=== PATIENT | female | born 1960 | race Caucasian/White ===

== ENCOUNTER 2017-08-15 08:30 | Inpatient (IN) | payer OTHER ==
[~2017-08-15] VITALS: Ht 172.7 cm; Wt 90.2 kg
[~2017-08-15 08:30] MED LIST: ADVAIR 250-501 EACH; ADVAIR 250-501 EACH INH; ALBUTEROL SULF8.5 GM IH; ALBUTEROL2.5 MG/3 M IH; ALLERGY RELIEF25 MG PO; AMITRIPTYLINE H50 MG PO; AMITRIPTYLINE H75 MG PO; AMITRIPTYLINE150 MG PO; AMOXICILLIN500 MG PO; ASPIRIN EC325 MG PO; AZITHROMYCIN250 MG PO; BACTRIM DS TAB1 EACH PO; CARBAMAZEPINE100 MG PO; CARBATROL100 MG PO; CEPHALEXIN500 MG PO; CETIRIZINE HCL10 MG PO; CHANTIX1 MG PO; CIPROFLOXACIN500 MG PO; CYCLOBENZAPRINE10 MG PO; DAILY VALUE1 EACH PO; DALIRESP500 MCG PO; DIAZEPAM10 MG PO; DIFLUCAN100 MG PO; FEMARA2.5 MG NG; FEMARA2.5 MG PO; FLEXERIL10 MG PO; FLUCONAZOLE150 MG PO; FLUTICASONE PRO16 GM NS; GEMFIBROZIL600 MG PO; HUMALOG100 UNIT/1 SUB-Q; HUMALOG100 UNIT/2 SUB-Q; HYDROCODON-ACE1 EA12 PO; HYDROCODON-ACE1 EAC8 PO; IPRAT-ALBUT 0.5-3 ML INH; KEFLEX500 MG PO; LANTUS100 UNITS/ SUB-Q; LEVAQUIN500 MG PO; LISINOPRIL10 MG PO; LISINOPRIL5 MG PO; MECLIZINE HCL12.5 MG PO; METOPROLOL SUCC25 MG PO; MIRALAX17 GM PO; NEURONTIN800 MG PO; NICORETTE2 MG MM; NORCO 5-325 TA1 EACH PO; NYSTATIN100000 UN1 PO; ONDANSETRON ODT4 MG PO; PERCOCET 7.5-31 EACH PO; PREDNISONE10 M1 PO; PREDNISONE10 MG PO; PREDNISONE20 MG; PREDNISONE20 MG PO; PREDNISONE5 MG PO; PRILOSEC OTC20 MG PO; PRILOSEC20 MG PO; SALT TABLETS; SENEXON-S TABL1 EACH PO; SPIRIVA18 MCG INH; SUMATRIPTAN SUC25 MG PO; TEGRETOL200 MG PO; TIMOPTIC 0.5%1 EACH OU; TOPROL XL25 MG PO; VALIUM5 MG PO; VITAMIN D-32000 UNI1 PO; VITAMIN D5000 UNIT PO; ZANTAC150 MG PO; ZESTRIL2.5 MG PO; ZITHROMAX500 MG PO; ZOFRAN8 MG PO
[2017-08-15] MEDS ORDERED: METOPROLOL TART25 MG PO (16:10)
[2017-08-15] MEDS ORDERED: HYDROCODON-ACE1 EAC8 PO (16:14)
[2017-08-15] MEDS ORDERED: ADVAIR 250-501 EACH INH (16:50)
[2017-08-15] MEDS ORDERED: IMITREX100 MG PO (18:35)
--- NOTE | 2017-08-16 10:01 | CONS ---
[facility] [place] [facility] [address], [place] [address] Signed DATE OF CONSULTATION: 08/15/2017 CHIEF COMPLAINT: Right lower quadrant abdominal pain. HISTORY OF PRESENT ILLNESS: Sophia is a 56-year-old female with significant medical history as listed below. She reminded me I removed her gallbladder back in 2014. She said before that she has had a couple of colonoscopies and to her knowledge they were fine. She presents to the emergency room today with 2 days of right mid quadrant and right lower quadrant abdominal pain and diarrhea. Her vital signs were stable. Her white count was borderline at 11, and the lactic acid borderline around 2.3. Consequently, she underwent a CT scan of the abdomen and pelvis. She does have a tiny 4.5 mm new lesion in the right lower lobe of her lung, but more importantly she has a large mass in the bnfwwgsf-fz-dxj right colon. This was obviously very concerning for colon cancer. Because of her advanced medical issues and her current situation, I was asked to admit her as a general surgeon general practitioner. In the meantime, we have also had our internal medicine service see her as well. She is in the process now of having IV placed and so forth. 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 PAST SURGICAL HISTORY: Includes a hysterectomy, bilateral wrist surgery, elbow surgery, shoulder surgery, bilateral cataract surgery, bowel resection, bladder suspension, laparoscopic cholecystectomy [place] [address] Grant. Bilateral hand surgery, left total knee replacement with Dr. Weeks. Bilateral mastectomy [place] [address] Whitman. At least 2 colonoscopies prior to [address] Whitman, left knee arthroscopy and drainage of a right eye. SOCIAL HISTORY: She has been smoking a pack of cigarettes a day since the age of 13. She does not drink. She is and lives alone in an apartment here in [place], [place]. She is eligible to drive, but chooses not to drive given all her medical issues. She has one son, Ariel Ortega at [phone], who lives in [place]. She prefers [facility]. PRIMARY CARE PROVIDER: CÉSAR Celis ONCOLOGIST: Shravan Nogueira MD FAMILY HISTORY: Mom had diabetes, hypertension, lung cancer from smoking, an [place] and a stroke. Dad unfortunately developed alcoholism and cirrhosis and at age 43. REVIEW OF SYSTEMS: Sophia had 10 systems reviewed and really nothing new to add to her Electronically Signed By: WAGNER GRANT MD 08/16/17 1001 PATIENT NAME: SOPHIA ARGUELLES CONSULTATION DATE OF : 60 PHYSICIAN: WAGNER GRANT MD REPORT #: [id number] REPORT IS CONFIDENTIAL AND NOT TO BE RELEASED WITHOUT AUTHORIZATION [facility] [address], [place] [address] Signed exhaustive medical history from our medical records. ALLERGIES: Cymbalta, Chantix, morphine, topiramate, Celecoxib, pregabalin. MEDICATIONS: Ipratropium/albuterol, gemfibrozil, gabapentin, Timolol 0.5% eye drops, Flexeril, albuterol p.r.n., Daliresp, Spiriva, Lantus, carbamazepine, diazepam, Humalog, amitriptyline, and Advair. Senexon-S, [place] 10/325, Zantac, nystatin p.o., prednisone 5 mg p.o. daily, and Benadryl. PHYSICAL EXAMINATION: VITAL SIGNS: Her blood pressure is 133/61, heart rate is 100, respiratory rate is 20. She is 98.2 degrees. She is 99% on room air. She is 5 feet 8 inches at 90 kg. GENERAL: Sophia is a 56-year-old female, who looks much older than her stated age. It is very clear she has been a long-time smoker. RESPIRATORY SYSTEM: Her lungs have moderately distant breath sounds. CARDIOVASCULAR SYSTEM: The heart appears to be regular rate and rhythm without murmurs. GASTROINTESTINAL: The abdomen shows mild protuberance, but it is soft throughout. She is clearly tender in the right mid to right lower quadrant of her abdomen. With careful palpation, I can feel the mass underneath her abdominal wall. LABORATORIES: White blood cell count 11.1, hemoglobin 10.7, neutrophils 74, platelets 373. BUN 16, creatinine 0.7, glucose 465. Lactic acid 2.3. Liver function tests are negative. Albumin 3.3. Urinalysis showed glucose. RADIOGRAPHIC STUDIES: A CT scan abdomen and pelvis is reviewed, the report and the actual films. There is a small 4.5 mm lesion in the right lower lobe of her lung, which is new. She clearly has a mass in the xnwthyjj-al-rjk right colon with some inflammation around it and also some sigmoid diverticulosis. Nothing obvious as far as lymph nodes or the liver. ASSESSMENT AND PLAN: Sophia is a 56-year-old female, who presents with what looks like a mass in her proximal and mid right colon with some surrounding inflammation most concerning for a tumor and she is also having diarrhea and her blood sugar is uncontrolled as she did not take her insulin this morning. She has been admitted and we are going to start her on some IV fluids. We will have her medical service see her for her complex medical issues. We are going to do our best to put her through a bowel prep today with a colonoscopy tomorrow with the help of our anesthesia providers and hopefully we can get up into the right colon and get a look at this area with biopsies. I have reviewed this with Sophia in detail along with her nurse and Dr. Caceres. They have expressed understanding and agreed to above plan. Electronically Signed By: WAGNER GRANT MD 08/16/17 1001 PATIENT NAME: SOPHIA ARGUELLES CONSULTATION DATE OF : 60 PHYSICIAN: WAGNER GRANT MD REPORT #: [id number] REPORT IS CONFIDENTIAL AND NOT TO BE RELEASED WITHOUT AUTHORIZATION [address] [address] Signed MD KAYLA Chapin/DUKE /[id number] cc: Wagner Grant MD Patient's Chart MD Lashon Hopkins WILDLIFE CONSERVATION PROFESSOR Electronically Signed By: WAGNER GRANT MD 08/16/17 1001 PATIENT NAME: SOPHIA ARGUELLES CONSULTATION DATE OF : 60 PHYSICIAN: WAGNER GRANT MD REPORT #: [id number] REPORT IS CONFIDENTIAL AND NOT TO BE RELEASED WITHOUT AUTHORIZATION
--- NOTE | 2017-08-16 19:18 | EKG ---
[facility] [address] [facility] [place], [place] [address] Signed Sinus tachycardia Otherwise normal ECG When compared with ECG of 02-APR-2017 12:10, No significant change was found Confirmed by CHARLY SALAS MD ([id number]) on 08/16/2017 7:17:52 PM Electronically Signed By: CHARLY SALAS MD 08/16/17 1918 PATIENT NAME: TRINY ARGUELLES Electrocardiogram DATE OF : 60 PHYSICIAN: CHARLY SALAS MD REPORT #: [id number] REPORT IS CONFIDENTIAL AND NOT TO BE RELEASED WITHOUT AUTHORIZATION
--- NOTE | 2017-08-17 09:46 | OR ---
[facility] [address], [place] [address] Signed DATE OF OPERATION: 08/16/2017 SURGEON: Wagner Angel MD PREOPERATIVE DIAGNOSIS: Unspecified mass, right colon. POSTOPERATIVE DIAGNOSES: 1. Right colon cancer. 2. A 12 mm distal right colon polyp (snare). 3. The 5-mm polyps at 90 and 72 cm. PROCEDURE: Colonoscopy with snare polypectomy and hot biopsy. ESTIMATED BLOOD LOSS: None. INDICATIONS: Sophia is a 56-year-old female who unfortunately has rather significant COPD as she began smoking a pack of cigarettes a day at age 13. She also has significant other medical issues including her diabetes and her obstructive sleep apnea requiring BiPAP. She has had multiple prior surgeries as listed in the history and physical and she has had breast cancer as well as lung cancer. The last two days she was having right-sided abdominal pain with diarrhea. She came to emergency room for evaluation. In the emergency room, one could feel a tender mass in the right mid quadrant and right lower quadrant area. She had lab work done, which was not particularly concerning. Specifically, the liver function tests were negative. Her CEA level is pending. She had a CT scan of the abdomen and pelvis performed and she does have a nonspecified mass in her mid right colon. There also appears to be low diverticulosis. I have been asked to admit Sophia as a general surgeon on-call. I met with Sophia in the hospital and we had a long discussion. She does have a POLST form from her doctor's office stating that she is a DNR/DNI as well as comfort care measures only. Nevertheless, she talked to me about having surgery and also wanted to proceed with a colonoscopy at least for diagnostic purposes. She is very familiar with colonoscopy having two prior procedures. I reviewed with her the nature of a colonoscopy along with its risks including, but not limited to gas, bloating, crampy abdominal pain, bleeding, perforation, requiring surgery, and missed diagnosis. In addition, because of her advanced medical issues, we asked that an anesthesia provider help us with increased monitoring and sedation with propofol. She had expressed understanding and wished to proceed. PROCEDURE NOTE: Sophia was taken into our endoscopy suite and placed in the left lateral decubitus position. She was given IV sedation with propofol per nurse entertainment usher. A digital rectal exam was performed and this was unremarkable. The adult colonoscope was introduced and advanced under direct visualization of camera without difficulty. Her prep was moderate. She still had a couple areas of liquid particulate Electronically Signed By: WAGNER ANGEL MD 08/17/17 0946 PATIENT NAME: SOPHIA ARGUELLES OPERATIVE REPORT DATE OF : 60 PHYSICIAN: WAGNER ANGEL MD REPORT #: [id number] REPORT IS CONFIDENTIAL AND NOT TO BE RELEASED WITHOUT AUTHORIZATION [address] [address] Signed stool matter. Most of that was irrigated and suctioned out. We made our way slowly but surely up into the mid ascending colon and sure enough, she has a nearly circumferential but nonobstructing colonic mass. It is obvious it is a cancer. We went ahead and took several biopsies for pathologic review. The scope was then slowly withdrawn and we took out a pedunculated 12 mm polyp in the distal right colon/proximal transverse colon with the help of our snare. Hemostasis was excellent and we made our way back to 90 cm and 72 cm where there were small 5-mm polyps removed with a hot biopsy forceps. We did not specifically see the diverticula today. In the rectum she had a moderate amount of stool, which was suctioned out. We did not see any specific pathology in the rectum itself. After this, the gas was suctioned out and the colonoscope removed. Sophia tolerated the procedure quite well. RECOMMENDATIONS: Sophia will be returned to her room and I have to talk with her in more detail tomorrow once her medications are worn off about her wishes. Wagner Angel MD [facility] /[id number] cc: MD Shravan Chapin MD Eileen Mcelligott, [facility] Electronically Signed By: WAGNER ANGEL MD 08/17/17 0946 PATIENT NAME: SOPHIA ARGUELLES OPERATIVE REPORT DATE OF : 60 PHYSICIAN: WAGNER ANGEL MD REPORT #: [id number] REPORT IS CONFIDENTIAL AND NOT TO BE RELEASED WITHOUT AUTHORIZATION
== END 2017-08-16 11:25 | disposition home or self-care (01) | DRG 376 ==
LOC: ED 08:30 → MS 13:24
PROVIDERS: ADMIT Colon & Rectal Surgery
PROC: 0DBL8ZX Excision of Transverse Colon, Via Natural or Artificial Opening Endoscopic, Diagnostic (ICD-10-PCS; 2017-08-16)
PROC: 0DBK8ZX Excision of Ascending Colon, Via Natural or Artificial Opening Endoscopic, Diagnostic (ICD-10-PCS; 2017-08-16)
PROC: 0DBG8ZX Excision of Left Large Intestine, Via Natural or Artificial Opening Endoscopic, Diagnostic (ICD-10-PCS; principal; 2017-08-16 09:00)
DX: C18.2 Malignant neoplasm of ascending colon (principal); J44.9 Chronic obstructive pulmonary disease, unspecified; E11.9 Type 2 diabetes mellitus without complications; Z79.4 Long term (current) use of insulin; M48.00 Spinal stenosis, site unspecified; G89.4 Chronic pain syndrome; E78.5 Hyperlipidemia, unspecified; H40.9 Unspecified glaucoma; I10 Essential (primary) hypertension; G47.33 Obstructive sleep apnea (adult) (pediatric); R91.1 Solitary pulmonary nodule; K63.89 Other specified diseases of intestine; F17.210 Nicotine dependence, cigarettes, uncomplicated; K63.5 Polyp of colon
CPT/HCPCS: 00810; 36415; 36600; 71020; 74177; 80048; 80053; 81001; 82378; 82803; 83605; 83690; 83735; 84100; 85025; 93005; 93010; 94640; 96361; 96372; 96374; 96375; 99285; J1170; J1200; J1644; J2405; J2704; J2765; J7040; J7120; J7512; Q9967

== ENCOUNTER 2017-08-24 18:56 | Observation (INO) | payer OTHER ==
[~2017-08-24] VITALS: Ht 172.7 cm; Wt 88.2 kg
--- OUTSIDE RECORDS SUMMARY | ~2017-08-24 | XMS | Clinical Summary ---
Demographics + + + | Address | [address] | | | [place] [address] | + + + | Home Phone | | + + + | Preferred Language | Unknown | + + + | Marital Status | Single | + + + | Oriental Orthodox Affiliation | Unknown | + + + [...] Team Providers + +------+ + | Care Steam Table Associate Name | Role | Phone | + [...]
--- OUTSIDE RECORDS SUMMARY | ~2017-08-24 | XMS | Clinical Summary ---
Demographics + + + | Address | [address] | | | [place] [address] | + + + | Home Phone | | + + + | Preferred Language | Unknown | + + + | Marital Status | Single | + + + | Faith Affiliation | Unknown | + + + [...] Team Providers + +------+ + | Care Thoracic Medicine Specialist Name | Role | Phone | + [...]
--- OUTSIDE RECORDS SUMMARY | ~2017-08-24 | XMS | Clinical Summary ---
Demographics + + + | Address | [address] | | | [place] [address] | + + + | Home Phone | | + + + | Preferred Language | Unknown | + + + | Marital Status | Single | + + + | Taoist Affiliation | Unknown | + + + [...] Providers + +------+ + | Care Director Of Housing Name | Role | Phone | + [...]
[~2017-08-24 18:56] MED LIST changes: +IMITREX100 MG PO; +METOPROLOL TART25 MG PO
--- NOTE | 2017-08-24 21:00 | NUR ---
56YR OLD WOMAN ADMITTED FROM ER VIA STRETCHER TO ROOM 115. PT UNRESPONSIVE BUT MOANS OCCASIONALLY. LIFT USED WITH 2 PERSON ASSIT TO MOVE ONTO BED. NO ATTEMPTS TO VERBALIZE OR FOLLOW INSTRUCTION. VS TAKEN, MAINTAINING OXIMETER 93% ON 4L/NC. BED ALARM IS ACTIVE FOR SAFETY. CALL LIGHT IN EASY REACH. POSITIONED FOR COMFORT, HOB UP 30 DEG. ORDERS NOTED.
--- NOTE | 2017-08-24 22:13 | NUR ---
RT IN TO SEE PT, REPOSITIONED, MOANS BUT NO ATTEMPTS TO COMMUNICATE.
--- NOTE | 2017-08-25 00:27 | NUR ---
PT RESTING QUIETLY, EYES CLOSED, APPEARS ASLEEP. LIGHTS AND TV OFF IN ROOM. BED ALARM ACTIVE FOR SAFETY.
--- NOTE | 2017-08-25 00:50 | NUR ---
PT SET BED ALARM OFF, ATTEMPTING TO GET OUT OF BED TO USE RESTROOM. PT DID NOT KNOW WHERE SHE WAS OR WHY SHE WAS HERE. ORIENTED EASILY. PT PLEASENT. VERY ALERT. REPORTS 9/10 PAIN IN HER RIGHT ABD, GAVE LORTAB FOR PAIN. ALSO GAVE JELLO PER REQUEST AND SOME FRESH ICE WATER. CALL LIGHT IN PLACE. BED ALARM ACTIVE FOR SAFETY.
--- NOTE | 2017-08-25 04:04 | NUR ---
PT ALERT AND ORIENTED X4. USES CALL LIGHT APPROPRIATLY. GAVE LORTAB FOR PAIN X1. 1 PERSON ASSIST TO BATHROOM. PT PLEASENT DEMEANOR, COOPERATIVE.
--- NOTE | 2017-08-25 04:42 | NUR ---
PT APPEARS TO BE SLEEPING.
--- NOTE | 2017-08-25 05:05 | NUR ---
ASSISTED PT UP TO BATHROOM TO VOID. ORDERED BREAKFAST. CALL LIGHT IN REACH.
--- NOTE | 2017-08-25 08:35 | NUR ---
PATIENT UP TO BATHROOM AGAIN THIS AM. PATIENT REQUESTING HER NORMAL HOME MEDICATIONS AND STATES SHE IS HURTING EVERYWHERE. MD TO BE NOTIFIED.PATIENT ATE APRPOX 50% OF HER BREAKFAST. PT REMAINS ON 2 L NC. PT NOTED TO HAVE A HARSH COUGH.
--- NOTE | 2017-08-25 11:52 | NUR ---
DR. SALAS IN ROOM AT THIS TIME TO SEE PATIENT. PT AND DISCUSSING PT'S PLAN OF CARE WITH HOSPICE AND COMFORT CARE. PT FULLY ALERT AND RESPONSIVE, BUT DOES STATE SHE IS STILL IN PAIN.
--- NOTE | 2017-08-25 11:56 | NUR ---
PLAN IS FOR PATIENT TO D/C HOME TODAY AND CONTINUE ON COMFORT MEASURES AT HOME. PT IS TO FOLLOW UP WITH DR. GRANT LATER THIS WEEK AND CONTINUE TALKING WITH HOSPICE.
--- NOTE | 2017-08-25 13:42 | NUR ---
PATIENT UP TO BATHROOM AGAIN TO VOID. PATIENT ASKS "DO I HAVE PNEUMONIA?" EXPLAINED TO PATIENT THAT SINCE SHE IS COMFORT CARE ONLY MEASURE PER HER POLST FORM, NO AGGRESSIVE DIAGNOSTIC INTERVENTIONS WERE PERFORMED UPON ADMISSION TO THE HOPSPITAL. PT BECOMES MODERATELY SOB WITH ACTIVITY TO THE BATHROOM. PT HELPED TO GET DRESSED. PT STATES, "I DONT' KNOW IF I'LL MAKE IT TO MY DOCTOR'S APPT TOMORROW IF I STILL FEEL LIKE THIS." PT WAITING FOR HER SON TO COME TO THE HOSPITAL TO PICK HER UP AND TAKE HER HOME. PT STATES SHE STILL IS WANTING TO D/C HOME. IV D/C IN RIGHT HAND. CONTINUE TO MONITOR.
--- NOTE | 2017-08-25 14:16 | NUR ---
PATIENT USES CALL LIGHT AND EXPRESSES TO RN THAT SHE WANTS TO TALK TO DOCSAROJ ABOUT HER D/C HOME. PATIENT STATES, "I'M N OT SURE I'M READY TO GO HOME. MAYBE I SHOULD STAY HERE A FEW MORE DAYS. I'M NOT READY TO ." PATIENT AND MD AND THIS RN DISCUSS PT'S FEELINGS AND HER GOALS OF HER TREATMENT. PATIENT REMAINS CONFIDENT THAT SHE DOES NOT WANT TO HAVE FURTHER TREATMENT, TESTING, LAB DRAWS, AND THINGS OF THIS NATURE. PATIENT ENCOURAGED TO CONTINUE HER PLAN OF D/C HOME, FOLLOWING UP WITH DR. GRANT ON FRIDAY, AND FURTHER PURSUING HOSPICE AFTER HER APPT WITH DR. GRANT. PATIENT TEARFUL AND STATES, "I'M NOT READY TO ." PATIENT AGAIN CONSOLED AND ENCOURAGED TO SEEK OUT HOSPICE THEY CAN HELP HER TRANSITION DURING THIS TIME. PLAN FOR PATIENT TO CONTINUE TO D/C HOME TODAY ONCE HER SON ARRIVES.
== END 2017-08-25 16:22 | disposition home or self-care (01) ==
LOC: ED 18:56 → MS 18:58
PROVIDERS: ADMIT Internal Medicine
DX: G93.41 Metabolic encephalopathy (principal); C18.9 Malignant neoplasm of colon, unspecified; J44.9 Chronic obstructive pulmonary disease, unspecified; E11.9 Type 2 diabetes mellitus without complications; J96.12 Chronic respiratory failure with hypercapnia; J96.11 Chronic respiratory failure with hypoxia; E78.5 Hyperlipidemia, unspecified; G89.4 Chronic pain syndrome; H40.9 Unspecified glaucoma; F17.200 Nicotine dependence, unspecified, uncomplicated; M48.00 Spinal stenosis, site unspecified; G47.33 Obstructive sleep apnea (adult) (pediatric); R91.1 Solitary pulmonary nodule; Z66 Do not resuscitate; Z51.5 Encounter for palliative care; Z88.5 Allergy status to narcotic agent; Z88.8 Allergy status to other drugs, medicaments and biological substances; Z85.3 Personal history of malignant neoplasm of breast; Z85.118 Personal history of other malignant neoplasm of bronchus and lung; Z79.4 Long term (current) use of insulin; Z79.891 Long term (current) use of opiate analgesic; Z79.51 Long term (current) use of inhaled steroids; Z79.52 Long term (current) use of systemic steroids; Z79.899 Other long term (current) drug therapy
CPT/HCPCS: 94640; 94760; 99285; G0378

== ENCOUNTER 2017-08-27 08:04 | Inpatient (IN) | payer OTHER ==
[~2017-08-27] VITALS: Ht 172.7 cm; Wt 88.2 kg
--- OUTSIDE RECORDS SUMMARY | ~2017-08-27 | XMS | Clinical Summary ---
Demographics + + + | Address | [address] | | | [place] [address] | + + + | Home Phone | | + + + | Preferred Language | Unknown | + + + | Marital Status | Single | + + + | Anabaptist Affiliation | Unknown | + + + | Race | White | + + + | Ethnic Group | Unknown | + + + Author + + + | Author | [facility] | + + + | Organization | [facility] | + + + | Address | Unknown | + + + | Phone | Unavailable | + + + Care Team Providers + +------+ + | Care Director Global Market Research Name | Role | Phone | + +------+ + PP | Unavailable | + +------+ + Allergies Not on File Current Medications Not on file Active Problems +---------+ + | Problem | Noted Date | +---------+ + | Lumbago | 11/28/2006 | +---------+ + + + | Overview: CHRONIC LUMBOSACRAL | + + Social History + +-------+ +--------+------+ | Tobacco Use | Types | Packs/Day | Years | Date | | | | | Used | | + +-------+ +--------+------+ | Never Assessed | | | | | + +-------+ +--------+------+ + + + | Sex Assigned at | Date Recorded | | | | + + + | Not on file | | + + + Plan of Treatment + + + + + | Health Maintenance | Due Date | Last Done | Comments | + + + + + | HIV Screening | | | | | | 5 | | | + + + + + | Tetanus | | | | | | 9 | | | + + + + + | Cervical Cancer | | | | | Screening | 1 | | | + + + + + | Breast Cancer | | | | | Screening | 0 | | | + + + + + | Colon Cancer | | | | | Screening | 0 | | | + + + + + | IMM Influenza (#1) | | | | | | 7 | | | + + + + + Results Not on filefrom Last 3 Months"
--- OUTSIDE RECORDS SUMMARY | ~2017-08-27 | XMS | Clinical Summary ---
Demographics + + + | Address | [address] | | | [place] [address] | + + + | Home Phone [...] Team Providers + +------+ + | Care Head Of Advertising Name | Role | Phone | + [...]
--- OUTSIDE RECORDS SUMMARY | ~2017-08-27 | XMS | Clinical Summary ---
Demographics + + + | Address | [address] | | | [place] [address] | + + + | Home Phone | | + + + | Preferred Language | Unknown | + + + | Marital Status | Single | + + + | Worship Affiliation | Unknown | + + + [...] Team Providers + +------+ + | Care Copper Flotation Operator Name | Role | Phone | + [...]
--- NOTE | 2017-08-27 11:30 | NUR ---
PT ARRIVED FROM ER. PT FULL ASSIST TRANSFER TO HOSPITAL BED. PT OBTUNDED. EYES CLOSED, PT MUMBLING INCOMPREHENSIBLY, NOT RESPONSIVE TO VERBAL STIMULI, WONT OPEN EYES. PT OCCASIONALLY REACHES OUT OR MOVES LEGS. PT TACHYPNEIC AND TACHYCARDIC. SKIN GROSSLY INTACT. HEEL PROTECTORS IN PLACE. PT PLACED IN POSITION OF COMFORT. PT TOOK OFF O2, LEFT OFF AT THIS TIME.
--- NOTE | 2017-08-27 12:40 | NUR ---
PATIENT IN BED. PILLOW UNDER LEGS. FAMILY IN ROOM.
--- NOTE | 2017-08-27 12:45 | NUR ---
CLARK CATH PLACED PER ORDERS. APPROX 300ML RETURN OF CONCENTRATED, CLOUDY YELLOW URINE.
--- NOTE | 2017-08-27 15:24 | NUR ---
PT REPOSITIONED TO LEFT SIDE. PT MOUTH SUCTIONED DUE TO EXCESSIVE ORAL SECRETIONS. ORAL CARE COMPLETED. ATROPINE DROPS GIVEN. PT FAMILY AT BEDSIDE.
--- NOTE | 2017-08-27 15:40 | NUR ---
PATIENT OBTUNDED. SON AND [id number] IN ROOM. MYSELF AND HOSPICE SHANA RODRIGUEZ SPOKE WITH FAMILY. SON STATES HE WANTS HIS MOTHER TO BE COMFORTABLE. HE AND [id number] STATE THEY WANT HER TO HAVE HOSPICE IF SHE IS ABLE TO LEAVE THE HOSPITAL, BUT THAT THE DOCTOR WAS UNSURE IF SHE WOULD SURVIVE FOR DISCHARGE. THEY ARE THANKFUL TO THE STAFF FOR HELPING HER SHE WAS SCARED OF "HURTING TOO MUCH". PATIENT HAS RR IN THE 30'S WITH SOME APNEA SPELLS. STAFF IN TO TURN PATIENT AND SUCTION ORAL SECRETIONS. PRAYER SAID AT BEDSIDE PER FAMILY WISHES. THEY ALSO WOULD LIKE PASTORAL CARE TO COME IN. ANNETTE SIEGEL CALLED, HE WILL COME TO ROOM JAMES.
--- NOTE | 2017-08-27 16:00 | NUR ---
PT HAD PROFUSE SECRETIONS, SUCTIONED AT THIS TIME. FAMILY AT BEDSIDE. AGONAL BREATHING NOTED. SHOE PARTS MOLDER GILBERT PRESENT.
--- NOTE | 2017-08-27 16:44 | NUR ---
PT NO LONGER APPEARS TO BE BREATHING, NO HEART BEAT NOTED UPON AUSCULTATION. PT CALLED AT 1630. FAMILY AT BEDSIDE. PASTOR HUNT PRESENT.
--- NOTE | 2017-08-27 17:30 | NUR ---
PT WASHED UP, IV AND AMBER PAULA'Chirag. PERSONAL BELONGINGS GATHERED. PT PREPARED FOR MORTUARY. PASTOR HUNT PRESENT AND COMPLETING HOME PREPARATIONS.
--- NOTE | 2017-08-27 17:58 | NUR ---
I WAS NOTIFIED BY SHIPPING PACKER AARTI THAT PT'S FAMILY WAS REQUESTING MY PRESENCE. PT WAS FADING QUICKLY. I ARRIVED, SON EDNA AND HIS BOTH WERE PRESENT. THEY WELCOMED ME, AND BEGAN TO TELL ME HIS MOTHER'S STORY OF HER JOHNSON WITH CANCER. THEY ACCEPTED MY OFFER OF THE SMALL PASSAGE QUILT-HER FAVORITE COLORS OF GREEN AND PURPLE. I PRAYED FOR GOD'S MERCY AND LOVE AND TO CARE FOR PT FOR ETERNITY. AT 1630 TRINY ARGUELLES LEFT THIS WORLD WITH HER SON HOLDING HER HAND AND TELLING HER, "MOM I LOVE YOU". WHAT A HUMBLING EXPERIENCE IT IS TO BE ALLOWED TO SHARE THESE MOMENTS. [facility] MORTUARY WAS SELECTED, AND PT IS TO BE CREMATED. I PLACED THE LARGE PASSAGE QUILT ON PT, FAMILY CHOSE TO LEAVE AND THANKED ME FOR BEING THERE. THE SMALL PASSAGE QUILT ALSO WENT WITH PT, FAMILY WILL RETRIEVE FROM MORTUARY. GOD BLESS THEM
--- NOTE | 2017-08-28 04:03 | EKG ---
[facility] [address] [facility] [place], [place] [address] Signed Sinus tachycardia Nonspecific ST and T wave abnormality Abnormal ECG When compared with ECG of 16-AUG-2017 08:13, Nonspecific T wave abnormality, worse in Lateral leads Confirmed by CHRISTINE JEAN MD ([id number]) on 08/28/2017 4:02:43 AM Electronically Signed By: CHRISTINE JEAN MD 08/28/17 0403 PATIENT NAME: TRINY ARGUELLES Electrocardiogram DATE OF : 60 PHYSICIAN: CHRISTINE JEAN MD REPORT #: [id number] REPORT IS CONFIDENTIAL AND NOT TO BE RELEASED WITHOUT AUTHORIZATION
== END 2017-08-27 16:30 | DRG 189 ==
LOC: ED 08:04 → MS 11:06
PROVIDERS: ADMIT Internal Medicine
DX: J96.20 Acute and chronic respiratory failure, unspecified whether with hypoxia or hypercapnia (principal); G93.40 Encephalopathy, unspecified; C18.2 Malignant neoplasm of ascending colon; Z51.5 Encounter for palliative care; E11.9 Type 2 diabetes mellitus without complications; J44.9 Chronic obstructive pulmonary disease, unspecified; F17.200 Nicotine dependence, unspecified, uncomplicated; Z85.3 Personal history of malignant neoplasm of breast; Z90.13 Acquired absence of bilateral breasts and nipples; Z79.4 Long term (current) use of insulin; Z90.710 Acquired absence of both cervix and uterus; Z90.49 Acquired absence of other specified parts of digestive tract
CPT/HCPCS: 36600; 71010; 80053; 81001; 82010; 82803; 83605; 84484; 85025; 87040; 87088; 93005; 93010; 94640; 96360; 96361; 99285; G0480; J2060; J7030